=== PATIENT | female | born 1995 | race Caucasian/White ===

== ENCOUNTER 2019-08-23 12:17 | Emergency (ER) | payer OTHER ==
[~2019-08-23] VITALS: Ht 160 cm; Wt 53.1 kg
[2019-08-23] MEDS ORDERED: Keflex500 MG PO (12:51)
== END 2019-08-23 13:10 | disposition home or self-care (01) ==
LOC: ER 12:17
DX: L23.7 Allergic contact dermatitis due to plants, except food (principal); L03.116 Cellulitis of left lower limb
CPT/HCPCS: 96372; 99282-25; J2920; J3301

== ENCOUNTER 2020-11-27 12:21 | Emergency (ER) | payer OTHER ==
[~2020-11-27] VITALS: Ht 160 cm; Wt 54.4 kg
[~2020-11-27 12:21] MED LIST: Keflex500 MG PO
== END 2020-11-27 13:30 | disposition home or self-care (01) ==
LOC: ER 12:21
DX: L23.7 Allergic contact dermatitis due to plants, except food (principal)
CPT/HCPCS: 96372; 99282-25; J3301